=== PATIENT | female | born 1995 | race American Indian/Alaskan Native ===

== ENCOUNTER 2020-12-03 13:09 | Emergency (ER) | payer SELFPAY ==
--- NOTE | 2020-12-03 15:44 | Emergency Department Report ---
Minor Respiratory - HPI Chief Complaint: Sore Throat Stated Complaint: SORE THROAT, HEADACHE,SNEEZING Duration: 1 Day Pain Location: Facial, Throat Severity: mild Minor Respiratory: Yes Sore Throat, Yes Able to Tolerate Fluids, No Rhinorrhea, No Ear Pain, No Cough, No Sick Contacts, No Hemoptysis, No Chest Pain, No Shortness of Breath, No Fever Other History: Patient is a pleasant 25-year-old that comes to the emergency room complaining of a runny nose sore throat and headache. She denies fever or chills. She denies cough or chest pain. She denies any shortness of breath. She is immunized against Covid. Patient is ambulatory, [id number] on arrival to [facility]. ED Review of Systems ROS: Stated complaint: SORE THROAT, HEADACHE,SNEEZING Other details as noted in HPI Comment: All other systems reviewed and negative ED Past Medical Hx - Past Medical History Previous Medical History?: No - Surgical History Past Surgical History?: Yes - Family History Family history: no significant - Social History Smoking Status: Never Smoker - Medications Home Medications: Home Medications Medication Instructions Recorded Confirmed Last Taken Type Cetirizine HCl [ZyrTEC] 10 mg PO DAILY #30 capsule 12/03/20 Unknown Rx Fluticasone [Flonase] 1 spray NS QDAY #1 bottle 12/03/20 Unknown Rx predniSONE [Deltasone] 20 mg PO DAILY #5 tablet 12/03/20 Unknown Rx Minor Respiratory Exam - Exam General: Vital signs noted. No distress. Alert and acting appropriately. HEENT: Yes Pharyngeal Erythema, Yes Moist Mucous Membranes, Yes Frontal Tenderness, Yes Maxillary Tenderness, No Pharyngeal Exudates, No Rhinorrhea, No Conjuctival Injection Ear: Neither TM Bulge, Neither TM Erythema, Neither EAC Pain, Neither EAC Discharge Neck: Yes Supple, No Adenopathy Lungs: Yes Good Air Exchange, No Wheezes, No Ronchi, No Stridor, No Cough, No Labored Respirations, No Retractions, No Use of Accessory Muscles, No Other Abnormal Lung Sounds Heart: Yes Regular, No Murmur Abdomen: Yes Normal Bowel Sounds, No Tenderness, No Peritoneal Signs Skin: No Rash, No Edema Neurologic: Alert and oriented, no deficits. Musculoskeletal: Unremarkable. ED Medical Decision Making - Medical Decision Making Vital signs normal as documented by RN. Patient has no hypotension, tachycardia or fever. Patient has had Covid immunizations x2. She is ambulatory, toxic and [id number] in [facility]. Patient being discharged home with discharge plan of care including sign and symptom relief for her sinusitis. Antibiotics not indicated at this time. Will stay with conservative treatment. Patient will follow up with PCP next week if she is not feeling better. On discharge patient asking for an excuse for work. - Differential Diagnosis SIMPLE URI Critical care attestation.: If time is entered above; I have spent that time in minutes in the direct care of this critically ill patient, excluding procedure time. ED Disposition Clinical Impression: URI (upper respiratory infection), Sinusitis Disposition: TO HOME OR SELFCARE Is pt being admited?: No Does the pt Need Aspirin: No Condition: Stable Instructions: Sinusitis, Adult, [id number] Additional Instructions: MEDS ORDERED FOLLOW UP WITH PCP NEXT WEEK IF PROBLEMS PERSIST REFERRAL BELOW Prescriptions: predniSONE [Deltasone] 20 mg PO DAILY #5 tablet Fluticasone [Flonase] 1 spray NS QDAY #1 bottle Cetirizine HCl [ZyrTEC] 10 mg PO DAILY #30 capsule Referrals: KRZYSZTOF DA SILVA MD [Staff Physician] - 3-5 Days Forms: Work/School Release Form(ED) Time of Disposition: 15:42
[2020-12-03 16:04] VITALS: BP 131/76
== END 2020-12-03 16:10 | disposition home or self-care (01) ==
LOC: ED 13:09
DX: J06.9 Acute upper respiratory infection, unspecified (principal); J32.9 Chronic sinusitis, unspecified; Z79.899 Other long term (current) drug therapy
CPT/HCPCS: 99281